=== PATIENT | female | born 1960 | race Caucasian/White ===

== ENCOUNTER → 2019-10-03 | Day surgery (SDC) | payer OTHER ==
[~2019-10-03] MED LIST: EPHEDRINE SULFATE INJ 50 MG/ML VIAL ONE; FENTANYL CITRATE/PF 100MCG/2 ML INJ ONE; FLONASE ALLERG9.9 ML INH; HEMP EXTRACT PO; HYOSCYAMINE 0.125 MG TAB ONE; LIDOCAINE HCL 2% LOCAL INJ 5 ML SDV VIAL INJ ONE; MIDAZOLAM HCL 2 MG/2 ML VIAL ONE; OSTEO BI-FLEX1 EAC4 PO; PHYTONADIONE 10MG/ML 1 ML ONE; PROPOFOL IV EMULSION 10 MG/ML 20 ML VIAL ONE; PROPOFOL IV EMULSION 10 MG/ML 50 ML VIAL ONE; ZYRTEC10 M3 PO; melatonin PO
[2019-10-03 11:30] VITALS: BP 126/73
--- NOTE | 2019-10-03 13:11 | Operative Report ---
DATE OF PROCEDURE: 10/03/2019 SURGEON: Delfin Valenzuela MD PROCEDURES: EGD with biopsies and colonoscopy with polypectomy. INDICATIONS FOR EGD: Anemia. INDICATIONS FOR COLONOSCOPY: Colorectal cancer screening. MEDICATIONS: The patient was done under MAC, please see anesthesiologist's note. PROCEDURE IN DETAIL: With the patient in the left lateral decubitus position, a flexible fiberoptic Olympus gastroscope was introduced into the esophagus under direct visualization without any difficulty. Grade 1 esophageal varices were noted. There was no active bleeding or stigmata of recent hemorrhage. There was some patchy erythema noted in distal esophagus. The scope was then advanced with ease into the stomach and mucosa overlying the antrum and the body revealed some patchy erythema and low-grade to moderate edema, and biopsies were obtained and sent to stain for H. pylori. Some portal hypertensive changes were noted primarily in the antrum and those changes were less prominent in the body and the fundus. The pylorus was of normal contour and shape, was intubated with ease and the scope was advanced all the way to the second portion of the duodenum. Mucosa overlying the proximal second portion appeared to be within normal limits. There was a minute nodule noted in the duodenal bulb and that was biopsied. The scope was then withdrawn back into the stomach and retroflexed, and the mucosa overlying the fundus and the cardia grossly appeared to be within normal limits. The scope was then straightened out, it was subsequently withdrawn, and the patient tolerated the procedure well. IMPRESSION: 1. Distal esophagitis, mild. 2. Grade 1 esophageal varices. 3. Portal hypertensive gastropathy, mild. 4. Gastritis, biopsied, biopsies sent to stain for Helicobacter pylori. 5. Duodenal bulb nodule, biopsied. PLAN: Follow up histology. Initiate Protonix 40 mg 1 p.o. q.a.m. before meals. The patient was then turned around and after adequate lubrication of the anal canal, a flexible fiberoptic Olympus colonoscope was inserted into the rectum with ease and advanced all the way to the cecum. It was then withdrawn slowly, mucosa overlying the cecum, ascending colon, and transverse colon appeared to be within normal limits. There was a minute polyp noted in the descending colon that was removed per hot biopsy forceps. Another polyp in the sigmoid colon was also removed per the hot biopsy forceps and a minute polyp was also in the proximal rectum that was removed per hot biopsy forceps. The scope was then retroflexed into the distal rectum and small internal hemorrhoids were noted, none of which was actively bleeding. The scope was then straightened out, it was subsequently withdrawn, and the patient tolerated the procedure well. IMPRESSION: 1. Descending colon polyp, hot biopsied. 2. Sigmoid colon polyp, hot biopsied. 3. Rectal polyp, hot biopsied. 4. Internal hemorrhoids, none actively bleeding. PLAN: Follow up histology. Initiate high-fiber, low-fat diet. Initiate high-fiber supplement. The patient might benefit from a followup colonoscopy in 3 years. MD MARVIN Mittal/HUGO /[id number] cc: Phan Reyes DO
== END | disposition home or self-care (01) ==
LOC: OR 08:18
PROVIDERS: ATTEND Internal Medicine Gastroenterology
DX: R74.8 Abnormal levels of other serum enzymes (principal); K63.5 Polyp of colon; K62.1 Rectal polyp; K29.50 Unspecified chronic gastritis without bleeding; K29.80 Duodenitis without bleeding; K76.6 Portal hypertension; K31.89 Other diseases of stomach and duodenum; K20.9 Esophagitis, unspecified; K74.60 Unspecified cirrhosis of liver; I85.10 Secondary esophageal varices without bleeding; D64.9 Anemia, unspecified; I95.9 Hypotension, unspecified; B19.20 Unspecified viral hepatitis C without hepatic coma; I45.10 Unspecified right bundle-branch block; R03.0 Elevated blood-pressure reading, without diagnosis of hypertension; F10.10 Alcohol abuse, uncomplicated; Z01.810 Encounter for preprocedural cardiovascular examination; Z68.26 Body mass index [BMI] 26.0-26.9, adult; Z87.891 Personal history of nicotine dependence; Z86.19 Personal history of other infectious and parasitic diseases
CPT/HCPCS: 43239; 45384; 87521; 93005; J2001; J2250; J2704 ×2; J3010; J3430; 45378

== ENCOUNTER → 2019-10-05 | Outpatient (CLI) | payer OTHER ==
[~2019-10-05] MED LIST changes: -EPHEDRINE SULFATE INJ 50 MG/ML VIAL ONE; -FENTANYL CITRATE/PF 100MCG/2 ML INJ ONE; -HYOSCYAMINE 0.125 MG TAB ONE; +IOPAMIDOL 370 MG/ML 200 ML INFUS..BTL INJ ONE; -LIDOCAINE HCL 2% LOCAL INJ 5 ML SDV VIAL INJ ONE; -MIDAZOLAM HCL 2 MG/2 ML VIAL ONE; -PHYTONADIONE 10MG/ML 1 ML ONE; -PROPOFOL IV EMULSION 10 MG/ML 20 ML VIAL ONE; -PROPOFOL IV EMULSION 10 MG/ML 50 ML VIAL ONE; +SODIUM CHLORIDE 0.9% 50ML 50 ML ONE
[2019-10-05 15:12] LABS: BLOOD UREA NITROGEN 6 mg/dL (7-26); BUN/CREATININE RATIO 8 (6-25); CREATININE, SERUM 0.72 mg/dL (0.57-1.11); EST GLOMERULAR FILTRATION RATE > 60 ML/MIN (60-)
== END ==
LOC: CT 14:26
PROVIDERS: ATTEND Internal Medicine Cardiovascular Disease
DX: R22.42 Localized swelling, mass and lump, left lower limb (principal); K74.69 Other cirrhosis of liver
CPT/HCPCS: 36415; 73701; 82565; 84520; Q9967

== ENCOUNTER → 2020-02-22 | Outpatient (CLI) | payer OTHER ==
[~2020-02-22] MED LIST changes: -IOPAMIDOL 370 MG/ML 200 ML INFUS..BTL INJ ONE; -SODIUM CHLORIDE 0.9% 50ML 50 ML ONE
--- NOTE | 2020-02-22 11:30 | Diagnostic Imaging Report ---
EXAM: US LIVER DATE: 02/22/2020 9:57 AM INDICATION: Hepatic fibrosis COMPARISON: None FINDINGS: The visualized pancreas is unremarkable. The liver is normal in size measuring 14.8 cm in length. Hepatic echogenicity is within normal limits. No focal hepatic abnormality is identified. The main portal vein is patent with antegrade flow and diameter of 1.0 cm, within normal limits. The gallbladder is unremarkable. There is no evidence for cholelithiasis, gallbladder wall thickening, or pericholecystic fluid. There is no intra or extra hepatic biliary ductal dilatation. The common bile duct measures 2 mm. Sonographic Valencia's sign is negative. The right kidney is normal in size measuring 10.8 x 4.5 x 3.9 cm with normal cortical thickness/echogenicity. There is no evidence for solid renal mass, hydronephrosis, or shadowing calculi within the right kidney. The visualized portions the IVC and aorta are within normal limits. There is no ascites visualized within the right upper quadrant. IMPRESSION: Unremarkable right upper quadrant ultrasound examination. Signed by: Dr. Henry Gutierrez MD on 02/22/2020 11:27 AM
--- NOTE | 2020-02-22 12:54 | Diagnostic Imaging Report ---
EXAM: SMALL BOWEL SERIES DATE: 02/22/2020 10:38 AM INDICATION: Anemia Fluoroscopy Time: 0.3 min. Reference Air Kerma (Ka, r): 4.07 mGy. COMPARISON: None FINDINGS: Linoleum Printer images demonstrate no significant abnormalities. Enteric contrast material was provided orally without complication. The position of the ligament of Treitz is within normal limits. Small bowel mucosa is unremarkable without evidence for fixed filling defect, intrinsic/extrinsic compression, or contrast extravasation. Small bowel transit time is within normal limits with contrast material reaching the colon in one hour. Spot evaluation of the terminal ileum demonstrates no significant abnormalities. IMPRESSION: Unremarkable small bowel follow-through examination. Signed by: Dr. Henry Gutierrez MD on 02/22/2020 12:51 PM
== END ==
LOC: US 09:43
PROVIDERS: ATTEND Internal Medicine Gastroenterology
DX: K20.9 Esophagitis, unspecified (principal); K29.70 Gastritis, unspecified, without bleeding; K74.0 Hepatic fibrosis; I10 Essential (primary) hypertension; Z11.59 Encounter for screening for other viral diseases
CPT/HCPCS: 74250; 76705; U0002